=== PATIENT | female | born 1990 | race Caucasian/White ===

== ENCOUNTER 2021-02-21 18:10 | Emergency (ER) | payer BC, OTHER, SELFPAY ==
--- OUTSIDE RECORDS SUMMARY | 2021-02-21 18:13 | XMS REPORT | Continuity of Care Document ---
:1990 Author Organization [facility] t Address [address] [place] [address] Dr. Dobbs [address] [place] [address] Care Team Providers Name Role Phone Unavailable Unavailable Unavailable Problems This patient has no known problems. Allergies, Adverse Reactions, Alerts This patient has no known allergies or adverse reactions. Medications This patient has no known medications. Procedures This patient has no known procedures. Results Test Description Test Time Test Comments Results Result Comments Source RPR FOR SERUM ONLY 2020-08-01 04:42:00 Test Item Value Reference Range Interpretation Comme nts RPR (test code = RPR) NONREACTIVE NONREACTIVE NR = NON-REACTIVE R = REACT FRANCIS THYROID STIMULATION [id number] 02:51:00 Test Item Value Reference Range Interpretation Comments TSH (test code = TSH) 1.27 UIU/ML 0.465-4.68 LIPID [id number] 02:17:00 Test Item Value Reference Range Interpretation Comments CHOLEST (test code = 158 MG/DL 0-200 CHOLEST) TRIGLYCE (test code = 156 MG/DL 0-150 H TRIGLYCE) HDL (test code = HDL) 34 MG/DL 35-90 L NEGATI VE RISK FACTOR FOR HEART DISEA SE IF HDL >/=60 mg/dl MAJOR RISK FACTOR FOR HEART DISEASE IF HDL <40 mg/dL CALC LDL (test code = 93 MG/DL <100 CALC LDL) % HEMOGLOBIN A1C (GLYCATED)2020-08-01 02:17:00 Test Item Value Reference Range Interpretation Comments HEMOGLOBIN A1C (test 4.8 % 0-6 TH ERAPEUTIC TARGET code = GLYCO-) FOR THE TREAT MENT OF DIABETES M ADRIANAITUS PATIENTS IS < 7 % HBA1C. [employer] DIABETES CARE 2002;25:S33-S49 URINE DRUG [id number] 00:45:00 Test Item Value Reference Range Interpretation Comments AMPHET (test code = NEGATIVE NEGATIVE This is an unconfirmed BAMP) screening. Res ult are to be used for medical purposes (treat ment) only. Not inte nded for non-medical pur poses. Cut-off concent ration for a positive result for each drug: Amphetamine - 1 ,000 ng/ml Barbitura te - 200 ng/ml Benzodiaz epine - 200 ng/ml Canna binoids - 50 ng/ml Coca ine - 300 ng/ml Opiat es - 300 ng/ml PCP - 25 ng/ml BARBITURATES (test NEGATIVE NEGATIVE code = BBAR) BENZO (test code = NEGATIVE NEGATIVE BBENZ) CANNABS (test code = NEGATIVE NEGATIVE BCANN) COCAINE (test code = NEGATIVE NEGATIVE BCOC) OPIATES (test code = NEGATIVE NEGATIVE BOPI) PCP (test code = NEGATIVE NEGATIVE BMTPCP) HEPATITIS C ANTIBODY [id number] 23:31:00 Test Item Value Reference Range Interpretation Comments SCRN HCV (test code NEGATIVE NEGATIVE Hepatiti s C Antibody test = SCRN HCV) is for screenin g purposes only. All react oswaldo will be confirmed by additional test ing. ER SCREEN FOR HIV 23:31:00 Test Item Value Reference Range Interpretation Comments HIV 1/2 AB (test NEGATIVE NEGATIVE This test i s used for code = SCRN HIV) SCREENING p urposes only. All reactive re sults are prelimenary and confirmation re sults will follow. [id number] 23:00:00 Test Item Value Reference Range Interpretation Comments GLUCOSE (test code = URGLU) NEGATIVE MG/DL NEG-100 BILIRUBN (test code = URBILI) NEGATIVE NEGATIVE KETONE (test code = URKET) NEGATIVE MG/DL NEGATIVE BLOOD (test code = URBLD) NEGATIVE UR PH (test code = URPH) 6.0 5.0-7.5 PROTEIN (test code = URPRO) NEGATIVE MG/DL NEGATIVE NITRITES (test code = URNIT) NEGATIVE NEGATIVE UROBILINGEN (test code = 0.2 EU/DL 0.2-1.0 URURO) LEUKOCYT (test code = URLEU) TRACE NEGATIVE UA COLOR (test code = UA YELLOW YELLOW COLOR) CLARITY (test code = CLARITY) CLOUDY CLEAR SP GRAV (test code = URSPGRAV) 1.009 1.000-1.025 UAMICRO (test code = UAMICRO) YES WBC (test code = URWBC) 22 /HPF 0-5 H RBC (test code = URRBC) 2 /HPF 0-2 CASTS (test code = CAST) 4 /LPF 0-3 H UR EPI (test code = EPI) 142 /LPF BACTERIA (test code = MODERATE NONE BACTERIA) COVID SYMPTOMATIC ER [id number] 22:58:00 Test Item Value Reference Range Interpretation Comments CORONAVIRUS (COVID-19)BY PCR (test NEGATIVE code = [id number]) CREATINE [id number] 22:44:00 Test Item Value Reference Range Interpretation Comments CK (test code = CK) 81 U/L 30-135 BLOOD ALCOHOL (ETOH)2020-07-31 22:40:00 Test Item Value Reference Range Interpretation Comments ALCOHOL BLOOD LEVEL <10 MG/DL 0-10 Results are to be used (test code = ALC BLD) for me dical purposes (treatment) onl y. Not intended for no n medical purpose s. [id number] 22:40:00 Test Item Value Reference Range Interpretation Comments SODIUM (test code = 139 MMOL/L 137-145 NA) K+ (test code = 3.8 MMOL/L 3.5-5.1 KSERUM) CHLORIDE (test code 104 MMOL/L 98-107 = CL) CO2 (test code = 27 MMOL/L 22-30 CO2) BUN (test code = 9 MG/DL 7-17 BUN) CREA (test code = 0.8 MG/DL 0.7-1.2 CREA) GLUCOSE (test code 96 MG/DL 70-99 Fasting glucose = GLUCOSE) normal <100 MG/ DL- [employer] recommendation* * CALCIUM (test code 9.4 MG/DL 8.4-10.2 = CABLOOD) TOTPROT (test code 6.7 G/DL 6.3-8.2 = TOTPROT) ALBUMIN (test code 4.1 G/DL 3.5-5.0 = ALBSERUM) BILITOT (test code 0.4 MG/DL 0.2-1.3 = BILITOT) AST (test code = 22 U/L 15-46 AST) PHOSALK (test code 76 U/L 38-126 = PHOSALK) ALTV (test code = 21 U/L 13-69 ALTV) GFR (test code = 90 A GFR of >9 0 GFR) mL/min/1.73m2 mL/min/1.73m2 is considered norm al. [id number] 22:18:00 Test Item Value Reference Range Interpretation Comments WBC (test code = 15.4 K/UL 3.5-10.9 H WBC) RBC (test code = 4.88 M/UL 4.0-5.0 RBC) HGB (test code = 14.6 G/DL 11.5-15.5 HGB) HCT (test code = 43.1 % 34-46 HCT) MCV (test code = 88.3 FL 80-98 MCV) MCH (test code = 29.9 PG 28-32 MCH) MCHC (test code = 33.9 G/DL 32.5-36.5 MCHC) RDW (test code = 12.1 % 11.5-14.5 RDW) PLT (test code = 241 K/UL 150-450 PLT) MPV (test code = 11.9 FL 7.4-10.4 H MPV) MANDIFF (test code = NO MANDIFF) SCAN (test code = NO SCAN) NEUT% (test code = 72.8 % 40-75 NEUT%) LYMPH% (test code = 17.1 % 24-44 L LYMPH%) MONO% (test code = 8.0 % 0-13 MONO%) EOS% (test code = 0.9 % 0-4 EOS%) BASO % (test code = 0.4 % 0-2 BASO%) IG (test code = IG) 0 % 0-1 IG% (test code = 0.8 % 0-1 IG% = Metam yelocytes, IG%) Myelocytes, and Promyelocytes. (Immature neutr ophils not including " bands".) > 3% IG indic ates risk of sepsis NRBC% (test code = 0 /100 WBC NRBC%) ABS NEUT (test code 11.2 K/UL 1.2-7.2 H = NEUT) ISTAT [id number] 22:15:00 Test Item Value Reference Range Interpretation Comments ISTAT HCG (test <5.0 IU/L A value of l ess than or code = ISHCG) equal to <5 IU /L is considered NEGA TIVE A value between 5 IU/L and 25 IU/L is cons idered INDETERMINATE A value of >25 IU/L is con sidered POSITIVE
[2021-02-21] MEDS ORDERED: HALOPERIDOL LACT 5 MG/ML INJ ONE (19:41)
[2021-02-21] MEDS ORDERED: DIPHENHYDRAMINE 50 MG/ML VIAL ONE (19:41)
[2021-02-21 19:44] LABS: Urine Blood Negative (Negative); Urine Glucose Negative (Negative); Urine Protein Negative (Negative); Urine Specific Gravity >=1.030 (1.005-1.030)
[2021-02-21 19:57] LABS: Absolute Lymphocytes (CBC) 2.8 K/uL (0.7-4.9); Basophils % 0.7 % (0-1.3); Hematocrit 42.8 % (36.0-45.0); Lymphocytes % 15.6 % (15.3-44.8); MPV 10.8 fL (7.6-11.3); RBC Red Blood Cell Count 4.88 M/uL (3.86-4.86)
[2021-02-21 20:02] LABS: Barbiturates NEGATIVE (NEGATIVE); Benzodiazepines NEGATIVE (NEGATIVE); Cocaine NEGATIVE (NEGATIVE); METHAMPHETAM NEGATIVE (NEGATIVE); Methadone NEGATIVE (NEGATIVE); Opiates NEGATIVE (NEGATIVE); Phencyclidine NEGATIVE (NEGATIVE); THC Cannibis NEGATIVE (NEGATIVE)
[2021-02-21 20:02] LABS: Protime INR 0.88
[2021-02-21 20:31] LABS: ALT/SGPT 25 U/L (12-78); AST/SGOT 12 U/L (15-37); Albumin 3.8 g/dL (3.4-5.0); Alkaline Phosphatase 107 U/L (45-117); BUN Blood Urea Nitrogen 7 mg/dL (7-18); Bicarbonate 28 mmol/L (21-32); Bilirubin Direct < 0.1 mg/dL (0-0.2); Bilirubin Total 0.2 mg/dL (0.2-1.0); Glucose Level 90 mg/dL (74-106); Potassium 3.9 mmol/L (3.5-5.1); Protein, Total 7.4 g/dL (6.4-8.2); Sodium Level 143 mmol/L (136-145)
[2021-02-21 20:53] LABS: Blood Morphology Comment NOT SEEN (NOT SEEN); Platelet Estimate ADEQ; Platelets, Giant FEW PRESENT
--- NOTE | 2021-02-21 21:38 | EDPHYS ---
Physician Documentation [facility] Name: Margret Grider Age: 30 yrs Sex: Female : 1990 Arrival Date: 02/21/2021 Time: 18:14 Bed 7 Private MD: ED Physician Claudia Morales HPI: 02/21 21:36 This 30 yrs old Female presents to ER via Ambulatory with complaints of acute ma2 over chronic Psychosis. 21:36 The patient presents to the emergency department with anxiety. Onset: The ma2 symptoms/episode began/occurred gradually, 2 day(s) ago. Associated signs and symptoms: Pertinent negatives: chest pain, delusions, fever, hallucinations. Severity of symptoms: At their worst the symptoms were mild in the emergency department the symptoms are unchanged. The patient has not experienced similar symptoms in the past. 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 - Social history:: Smoking status: Patient reports the use of cigarette tobacco products, smokes one pack cigarettes per day. Patient uses alcohol, occasionally. Patient/guardian denies using street drugs, IV drugs, Patient/guardian denies using The patient lives with spouse, . - Family history:: not pertinent. ROS: 21:36 Constitutional: Negative for fever, chills, and weight loss. ma2 21:36 All other systems are negative. Exam: 21:36 Constitutional: This is a well developed, well nourished patient who is awake, alert, ma2 and in no acute distress. Chest/axilla: Normal chest wall appearance and motion. Nontender with no deformity. No lesions are appreciated. Cardiovascular: Regular rate and rhythm with a normal S1 and S2. No gallops, murmurs, or rubs. Normal PMI, no JVD. No pulse deficits. Respiratory: Lungs have equal breath sounds bilaterally, clear to auscultation and percussion. No rales, rhonchi or wheezes noted. No increased work of breathing, no retractions or nasal flaring. Abdomen/GI: Soft, non-tender, with normal bowel sounds. No distension or tympany. No guarding or rebound. No evidence of tenderness throughout. MS/ Extremity: Pulses equal, no cyanosis. Neurovascular intact. Full, normal range of motion. Neuro: Awake and alert, GCS 15, oriented to person, place, time, and situation. Cranial nerves II-XII grossly intact. Motor strength 5/5 in all extremities. Sensory grossly intact. Cerebellar exam normal. Normal gait. 21:36 Psych: Behavior/mood is pleasant, cooperative, anxious, aggressive, Affect is flat, Oriented to person, place, time, Patient has no thoughts/intents to harm self or others. Judgement / Insight is impaired. Delusions/hallucinations are present and described as delusions ]. Vital Signs: 18:23 BP 125 / 95; Pulse 93; Resp 18 S; Temp 98(TE); Pulse Ox 100% on R/A; Weight 90.72 kg ca1 (R); Height 5 ft. 9 in. (175.26 cm) (R); 02/22 00:43 BP 122 / 89; Pulse 84; Resp 16; Pulse Ox 99% on R/A; jm8 05:11 BP 130 / 82; Pulse 82; Resp 16; Pulse Ox 99% on R/A; jm8 02/21 18:23 Body Mass Index 29.53 (90.72 kg, 175.26 cm) ca1 MDM: 02/21 19:03 Patient medically screened. ma2 21:36 Differential diagnosis: drug withdrawal. depression, psychosis secondary to ma2 non-compliance. Data reviewed: vital signs, nurses notes. Counseling: I had a detailed discussion with the patient and/or guardian regarding: the historical points, exam findings, and any diagnostic results supporting the discharge/admit diagnosis, the presence of at least one elevated blood pressure reading (>120/80) during this emergency department visit, the need to transfer to another facility. Response to treatment: the patient's symptoms have markedly improved after treatment. 02/22 03:04 ED course: I attempt to call dr. Williamson, phone number [phone], for doc to doc. no ma2 answer. I left a voice note . 03:23 ED course: accepted by dr. williamson at 0324. ma2 05:28 Medical screen evaluation completed. EMTALA emergency medical condition absent. ED ma2 course: accepted by dr. mchugh . 02/21 19:06 Order name: Acetaminophen; Complete Time: 20:33 [facility] 02/21 19:06 Order name: Basic Metabolic Panel; Complete Time: 20:33 [facility] 02/21 19:06 Order name: CBC with Diff; Complete Time: 21:17 [facility] 02/21 19:06 Order name: ETOH Level; Complete Time: 21:17 [facility] 02/21 19:06 Order name: Hepatic Function; Complete Time: 20:33 [facility] 02/21 19:06 Order name: PT-INR; Complete Time: 20:33 [facility] 02/21 19:06 Order name: Ptt, Activated; Complete Time: 20:33 [facility] 02/21 19:06 Order name: Salicylate; Complete Time: 20:33 [facility] 02/21 19:06 Order name: Urine Drug Screen; Complete Time: 20:33 [facility] 02/21 19:44 Order name: Urine Dipstick-Ancillary; Complete Time: 20:00 [facility] 02/21 20:53 Order name: Manual Differential; Complete Time: 21:17 [facility] 02/21 21:32 Order name: SARS-COV-2 RT PCR; Complete Time: 05:28 [facility] 02/22 04:18 Order name: CBC with Diff 8 02/21 19:06 Order name: Urine Test (obtain specimen); Complete Time: 19:45 [facility] 02/21 19:06 Order name: EKG; Complete Time: 19:07 [facility] 02/21 19:06 Order name: EKG - Nurse/Tech; Complete Time: 19:55 [facility] 02/21 19:06 Order name: IV Saline Lock; Complete Time: 19:45 [facility] 02/21 19:06 Order name: Labs collected and sent; Complete Time: 19:45 [facility] 02/21 19:06 Order name: Suicide Screening ([place]); Complete Time: 20:39 [facility] 02/21 19:06 Order name: Urine Dipstick-Ancillary (obtain specimen); Complete Time: 19:45 [facility] 02/22 04:18 Order name: CBC with Automated Diff; Complete Time: 05:28 [facility] 02/22 04:37 Order name: Manual Differential; Complete Time: 05:28 [facility] Administered Medications: 02/21 19:44 Drug: HALdol (haloperidol) 5 mg Route: IVP; Site: right antecubital; jm8 20:39 Follow up: Response: No adverse reaction 8 19:44 Drug: Benadryl (diphenhydrAMINE) 50 mg Route: IVP; Site: right antecubital; jm8 20:39 Follow up: Response: No adverse reaction 8 21:26 Drug: NS 0.9% 1000 ml Route: IV; Rate: 1 bolus; Site: right antecubital; 8 23:46 Follow up: IV Status: Completed infusion 8 21:26 Drug: Rocephin (cefTRIAXone) 1 grams Route: IV; Rate: calculated rate; Site: right jm8 antecubital; 23:46 Follow up: Response: No adverse reaction [facility] Point of Care Testing: Urine : 19:54 hCG Reading: Negative; Control Reading: Positive; 8 Disposition: 02/21/21 21:38 Transfer ordered to Psych Facility. Diagnosis is Delusional disorders. - Reason for transfer: Higher level of care. - Accepting physician is o[facility]. - Condition is Stable. - Problem is new. - Symptoms are unchanged. Signatures: Dispatcher [employer] [facility] Claudia Morales MD MD ma2 Emilee Barraza RN RN ca1 Marcel Puga RN RN jm8 Corrections: (The following items were deleted from the chart) 20:55 20:34 CORONAVIRUS+MR.LAB.BRZ ordered. [facility] 02/22 06:56 02/21 21:38 02/21/2021 21:38 Transfer ordered to Psych Facility. Diagnosis is jm8 Delusional disorders. Reason for transfer: Higher level of care. Accepting physician is [facility]. Condition is Stable. Problem is new. Symptoms are unchanged. ma2
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
[2021-02-21] MEDS ORDERED: CEFTRIAXONE/SWI 1gm 1 GM/10 ML SYR ONE (21:43)
[2021-02-21] MEDS ORDERED: NA CHLORIDE 0.9% 1,000 ML ONE (21:43)
[2021-02-22 04:32] LABS: Basophils % 0.4 % (0-1.3); Hematocrit 39.5 % (36.0-45.0); MPV 10.3 fL (7.6-11.3); RBC Red Blood Cell Count 4.48 M/uL (3.86-4.86)
[2021-02-22 05:09] LABS: Blood Morphology Comment NOT SEEN (NOT SEEN); Platelet Estimate ADEQ
[2021-02-22 07:43] VITALS: TEMP 98
[2021-02-22 07:45] VITALS: O2SAT 99
[2021-02-22 07:57] VITALS: BP 130/82
--- NOTE | 2021-02-22 11:58 | EKG ---
Test Date: 2021-02-21 Test Time: 19:54:33 [employer] Adminstrator: CHERYL MEASUREMENT RESULTS: Intervals: Rate: 100 MD: 128 QRSD: 84 QT: 372 QTc: 479 [place]: P: 56 MD: 128 QRS: 68 T: 37 INTERPRETIVE STATEMENTS: Normal sinus rhythm Normal ECG Compared to ECG 03/19/2015 17:20:41 Sinus tachycardia no longer present Electronically Signed On 02-22-21 11:56:55 CDT by Patrick Copeland
== END 2021-02-22 06:56 ==
LOC: ER 18:10
DX: F22 Delusional disorders (principal); F20.9 Schizophrenia, unspecified; F17.210 Nicotine dependence, cigarettes, uncomplicated; Z20.822 Contact with and (suspected) exposure to COVID-19
CPT/HCPCS: 36415; 80048; 80076; 80307; 80320; 80329; 81003; 85025; 85610; 85730; 93005; 96361; 96374; 96375; 99285; J0696; J1200; J1630; J7030; U0003

== ENCOUNTER 2024-01-28 18:05 | Emergency (ER) | payer OTHER, SELFPAY ==
[2024-01-28] MEDS ORDERED: clonazePAM 1 MG TAB ONE (22:17)
[2024-01-28 23:10] LABS: Absolute Eosinophils 0.3 K/uL (0-0.5); Absolute Monocytes 0.9 K/uL (0.1-1.3); Absolute Neutrophil 7.6 K/uL (1.8-8.0); Basophils % 0.4 % (0-1.3); Eosinophils % 3.1 % (0-4.4); Hematocrit 39.5 % (36.0-45.0); Hemoglobin 13.6 g/dL (12.0-15.0); Lymphocytes % 18.4 % (15.3-44.8); MCH 29.5 pg (27.0-35.0); MCHC 34.5 g/dL (32.0-36.0); MCV 85.5 fL (80-100); MPV 10.5 fL (7.6-11.3); Monocytes % 8.5 % (3.3-12.3); Neutrophils % 69.6 % (41.7-73.7); Platelets 213 thou/uL (152-406); RBC Red Blood Cell Count 4.61 M/uL (3.86-4.86); Red Cell Distribution Width 13.2 % (12.1-15.2)
[2024-01-28 23:11] LABS: PT Prothrombin Time 11.8 SECONDS (9.5-12.5); PTT, Activated Partial Thromb 34.6 SECONDS (24.3-36.9); Protime INR 1.07
[2024-01-28 23:18] LABS: Barbiturates NEGATIVE (NEGATIVE); Benzodiazepines NEGATIVE (NEGATIVE); Cocaine NEGATIVE (NEGATIVE); METHAMPHETAM NEGATIVE (NEGATIVE); Methadone NEGATIVE (NEGATIVE); Opiates NEGATIVE (NEGATIVE); Phencyclidine NEGATIVE (NEGATIVE); THC Cannibis NEGATIVE (NEGATIVE)
[2024-01-28 23:21] LABS: Specific Gravity 1.019 (1.005-1.030)
[2024-01-28 23:32] LABS: Urine Bacteria <20 /HPF (<20); Urine Bilirubin NEGATIVE (Negative); Urine Blood Negative (Negative); Urine Clarity Turbid (Clear); Urine Color Light-Yellow (Yellow); Urine Culture Reflex Order NOT NEEDED; Urine Glucose NEGATIVE (Negative); Urine Ketones NEGATIVE (Negative); Urine Microscopic Reflex YN ORDER UMIC; Urine Mucus Slight /HPF (None Seen); Urine Nitrite NEGATIVE (Negative); Urine Protein NEGATIVE (Negative); Urine RBC None Seen /HPF (None Seen); Urine Urobilinogen Normal (Normal); Urine WBC <5 /HPF (<5)
--- NOTE | 2024-01-28 23:36 | ER ---
Nurse's Notes [facility] Name: Margret Grider Age: 33 yrs Sex: Female : 1990 Arrival Date: 01/28/2024 Time: 18:05 Bed 7 Private MD: Diagnosis: Anxiety disorder, unspecified;Acute anxiety attack Presentation: 01/27 18:28 Chief complaint: Patient states: pt states she just wants to get things checked out. pt as6 reports she hasn't bee taking her psych meds. pt denies SI and HI at time of triage. Coronavirus screen: At this time, the client does not indicate any symptoms associated with coronavirus-19. Ebola Screen: No symptoms or risks identified at this time. Initial Sepsis Screen: Does the patient meet any 2 criteria? No. Patient's initial sepsis screen is negative. Does the patient have a suspected source of infection? No. Patient's initial sepsis screen is negative. Risk Assessment: Do you want to hurt yourself or someone else? Patient reports no desire to harm self or others. Onset of symptoms was January 28, 2024. 18:28 Method Of Arrival: Ambulatory as6 18:28 Acuity: CESARIO 3 as6 Triage Assessment: 18:30 General: Appears in no apparent distress. Behavior is cooperative, anxious, restless. as6 Pain: Denies pain. 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 - Infectious Disease History:: Denies. - Social history:: Smoking status: Patient reports the use of cigarette tobacco products, smokes one pack cigarettes per day. - Family history:: not pertinent. Screenin:28 [facility] ED Fall Risk Assessment (Adult) History of falling in the last 3 months, rv including since admission No falls in past 3 months (0 pts) Score/Fall Risk Level 0 - 2 = Low Risk Oriented to surroundings, Maintained a safe environment, Educated pt \\T\\ family on fall prevention, incl call for assistance when getting out of bed, Assessed \\T\\ reinforced patient's understanding of fall precautions. Abuse screen: Denies threats or abuse. Denies injuries from another. Nutritional screening: No deficits noted. Tuberculosis screening: No symptoms or risk factors identified. Assessment: 23:22 General: Appears comfortable, Behavior is cooperative, anxious. Pain: Denies pain. rv Neuro: Level of Consciousness is awake, alert, obeys commands, Oriented to person, place, time, situation. Cardiovascular: Capillary refill < 3 seconds Patient's skin is warm and dry. Respiratory: Airway is patent Respiratory effort is even, unlabored. Derm: Skin is intact. Psych: 22:29 [place] Suicide Severity Screening: did not answer. rv 23:23 [place] Suicide Severity Screening: In the past month, have you wished you were rv or wished you could go to sleep and not wake up? Patient responds "No." "In the past month, have you actually had any thoughts of killing yourself?" Patient responds "no." "In your lifetime, have you ever done anything, started to do anything, or prepared to do anything to end your life?" Patient responds "no.". Subjective: Delusions are denied, Hallucinations are denied. Objective: Patient is cooperative, Speech is. Interventions: Patient placed in hospital gown. Searched person for dangerous items. Safety Checks: Door is open. Pt denies substance abuse. 23:42 Commitment: n/a. me1 Vital Signs: 18:28 BP 157 / 101; Pulse 99; Resp 18 S; Temp 97.2(TE); Pulse Ox 100% on R/A; Weight 72.57 kg as6 (R); Height 5 ft. 7 in. (R); Pain 0/10; 19:00 BP 121 / 95; Pulse 78; Resp 15; Pulse Ox 99% on R/A; me1 20:00 BP 153 / 74; Pulse 80; Resp 19; Pulse Ox 100% on R/A; me1 22:56 BP 125 / 96; Pulse 86; Resp 16; Pulse Ox 98% on R/A; me1 23:15 BP 137 / 90; Pulse 76; Resp 16; Pulse Ox 97% on R/A; me1 18:28 Body Mass Index 25.06 (72.57 kg, 170.18 cm) as6 18:28 Pain Scale: Adult as6 John Coma Score: 23:36 Eye Response: spontaneous(4). Motor Response: obeys commands(6). Verbal Response: sp4 oriented(5). Total: 15. ED Course: 18:08 Patient arrived in ED. im 18:27 Arm band placed on left wrist. as6 18:30 Triage completed. as6 19:06 Bjorn Armas MD is Attending Physician. kiran 20:44 Attending Physician role handed off by Bjorn Armas MD sp4 20:44 Phillip Moore MD is Attending Physician. sp4 22:28 Patient has correct armband on for positive identification. Client placed on continuous rv cardiac and pulse oximetry monitoring. NIBP monitoring applied. 22:28 Acetaminophen Sent. rv 22:28 Basic Metabolic Panel Sent. rv 22:28 CBC with Diff Sent. rv 22:28 ETOH Level Sent. rv 22:28 Hepatic Function Sent. rv 22:28 PT-INR Sent. rv 22:28 Salicylate Sent. rv 22:28 Ptt, Activated Sent. rv 22:28 No provider procedures requiring assistance completed. Initial lab(s) drawn, by me, rv sent to lab. Inserted saline lock: 20 gauge in right hand, using aseptic technique. Blood collected. 23:34 Payam Painter MD is Referral Physician. sp4 23:37 IV discontinued, intact, bleeding controlled, No redness/swelling at site. Pressure me1 dressing applied. 23:38 Provided Education on: POC. Verbalized understanding.. me1 Administered Medications: 20:59 CANCELLED (Physician Discretion): ns 0.9% 1000 ml IV at 1 bolus Per protocol; 1000 mL sp4 bolus 22:28 Drug: clonazePAM PO 2 mg PO once Route: PO; rv 23:38 Follow up: Response: No adverse reaction; Anxiety decreased me1 Medication: 22:28 VIS not applicable for this client. rv Outcome: 23:35 Discharge ordered by . sp4 23:42 Discharged to home ambulatory, me1 23:42 Condition: stable 23:42 Discharge instructions given to patient, Instructed on discharge instructions, follow up and referral plans. medication usage, Demonstrated understanding of instructions, follow-up care, medications, Prescriptions given X 1, 23:44 Patient left the ED. me1 Signatures: Bjorn Armas MD MD cha Vicente, Ronaldo, RN RN rv Tirso Recio RN RN as6 Phillip Moore MD MD sp4 Milagro Gibson Michelle, RN RN me1
--- NOTE | 2024-01-28 23:36 | EDPHYS ---
Physician Documentation [facility] Name: Margret Grider Age: 33 yrs Sex: Female : 1990 Arrival Date: 01/28/2024 Time: 18:05 Bed 7 Private MD: ED Physician Phillip Moore HPI: 01/27 20:44 This 33 yrs old Female presents to ER via Ambulatory with complaints of Psych sp4 Problem. 23:36 33-year-old female presents with complaint of worsening anxiety which is chronic. sp4 Patient states that she was discharged from [facility] about a month ago and ever since then she has been anxious. Patient states she is not on any medication at this time but in the past she was on clonazepam. . 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 - Infectious Disease History:: Denies. - Social history:: Smoking status: Patient reports the use of cigarette tobacco products, smokes one pack cigarettes per day. - Family history:: not pertinent. ROS: 23:36 Constitutional: Negative for fever, chills, and weight loss, Psych: Positive for sp4 anxiety 23:36 All other systems are negative, Exam: 23:36 Constitutional: This is a well developed, well nourished patient who is awake, alert, sp4 and in no acute distress. Head/Face: Normocephalic, atraumatic. Eyes: Pupils equal round and reactive to light, extra-ocular motions intact. Lids and lashes normal. Conjunctiva and sclera are not injected. Cornea within normal limits. Periorbital areas with no swelling, redness, or edema. ENT: Nares patent. No nasal discharge, no septal abnormalities noted. Tympanic membranes are normal and external auditory canals are clear. Oropharynx with no redness, swelling, or masses, exudates, or evidence of obstruction, uvula midline. Mucous membranes moist. Neck: Trachea midline, no thyromegaly or masses palpated, and no cervical lymphadenopathy. Supple, full range of motion without nuchal rigidity, or vertebral point tenderness. Chest/axilla: Normal chest wall appearance and motion. Nontender with no deformity. No lesions are appreciated. Cardiovascular: Regular rate and rhythm with a normal S1 and S2. No gallops, murmurs, or rubs. Normal PMI, no JVD. No pulse deficits. Respiratory: Lungs have equal breath sounds bilaterally, clear to auscultation and percussion. No rales, rhonchi or wheezes noted. No increased work of breathing, no retractions or nasal flaring. Abdomen/GI: Soft, with normal bowel sounds. No distension or tympany. No guarding or rebound. No evidence of tenderness throughout. Back: No spinal tenderness. No costovertebral tenderness. Skin: Warm, dry with normal turgor. Normal color with no rashes, no lesions, and no evidence of cellulitis. MS/ Extremity: Pulses equal, no cyanosis. Neurovascular intact. Full, normal range of motion. Neuro: Awake and alert, GCS 15, oriented to person, place, time, and situation. Cranial nerves II-XII grossly intact. Motor strength 5/5 in all extremities. Sensory grossly intact. Psych: Awake, alert, with orientation to person, place and time. Behavior, mood, and affect are within normal limits Vital Signs: 18:28 BP 157 / 101; Pulse 99; Resp 18 S; Temp 97.2(TE); Pulse Ox 100% on R/A; Weight 72.57 kg as6 (R); Height 5 ft. 7 in. (R); Pain 0/10; 19:00 BP 121 / 95; Pulse 78; Resp 15; Pulse Ox 99% on R/A; me1 20:00 BP 153 / 74; Pulse 80; Resp 19; Pulse Ox 100% on R/A; me1 22:56 BP 125 / 96; Pulse 86; Resp 16; Pulse Ox 98% on R/A; me1 23:15 BP 137 / 90; Pulse 76; Resp 16; Pulse Ox 97% on R/A; me1 18:28 Body Mass Index 25.06 (72.57 kg, 170.18 cm) as6 18:28 Pain Scale: Adult as6 John Coma Score: 23:36 Eye Response: spontaneous(4). Motor Response: obeys commands(6). Verbal Response: sp4 oriented(5). Total: 15. MDM: 19:06 Patient medically screened. kiran 23:36 Differential diagnosis: drug withdrawal. acute psychotic break, depression, psychosis sp4 secondary to non-compliance. Data reviewed: vital signs, nurses notes, lab test result(s), UPT: negative. Consideration of Admission/Observation Escalation of care including admission/observation considered. ED course: 33-year-old female presents with worsening of chronic anxiety. Patient also have history of bipolar disorder and schizoaffective disorder. Patient denied homicidal or suicidal ideation. Patient stable for discharge with as needed clonazepam. Will advise follow-up with Dr. Sigala with psychiatry. 01/27 19:07 Order name: Acetaminophen [facility] 01/27 19:07 Order name: Basic Metabolic Panel [facility] 01/27 19:07 Order name: CBC with Diff; Complete Time: 23:30 [facility] 01/27 19:07 Order name: ETOH Level; Complete Time: 23:30 [facility] 01/27 19:07 Order name: Hepatic Function [facility] 01/27 19:07 Order name: PT-INR; Complete Time: 23:30 [facility] 01/27 19:07 Order name: Test, Urine; Complete Time: 23:30 [facility] 01/27 19:07 Order name: Ptt, Activated; Complete Time: 23:30 [facility] 01/27 19:07 Order name: Salicylate; Complete Time: 23:30 [facility] 01/27 19:07 Order name: Urinalysis w/ reflexes [facility] 01/27 19:07 Order name: Urine Drug Screen; Complete Time: 23:30 [facility] 01/27 19:07 Order name: IV Saline Lock; Complete Time: 22:28 [facility] 01/27 19:07 Order name: Labs collected and sent; Complete Time: 22:28 [facility] Administered Medications: 20:59 CANCELLED (Physician Discretion): ns 0.9% 1000 ml IV at 1 bolus Per protocol; 1000 mL sp4 bolus 22:28 Drug: clonazePAM PO 2 mg PO once Route: PO; rv 23:38 Follow up: Response: No adverse reaction; Anxiety decreased me1 Disposition Summary: 01/28/24 23:35 Discharge Ordered Notes: Location: Home sp4 Problem: new sp4 Symptoms: have improved sp4 Condition: Stable sp4 Diagnosis - Anxiety disorder, unspecified sp4 - Acute anxiety attack sp4 Followup: sp4 - With: Payam Painter MD - When: 7 - 10 days - Reason: Recheck today's complaints Discharge Instructions: - Discharge Summary Sheet sp4 - Managing Anxiety, Adult sp4 Forms: - Patient Portal Instructions sp4 Prescriptions: - clonazepam 1 mg Oral tablet - take 1 tablet ORAL route daily PRN anxiety; 20 tablet; Refills: 0, Product sp4 Selection Permitted Signatures: Dispatcher [employer] Bjorn Juarez MD MD cha Vicente, Ronaldo, RN RN rv Tirso Recio RN RN as6 Phillip Moore MD MD sp4 Mavis Hawley RN me1 Corrections: (The following items were deleted from the chart) 19:08 19:08 ACETAMINOPHEN+C.LAB.BRZ ordered. EDMS EDMS 19:08 19:08 BASIC METABOLIC PANEL+C.LAB.BRZ ordered. EDMS EDMS 19:08 19:08 CBC+H.LAB.BRZ ordered. EDMS EDMS 19:08 19:08 ETHANOL+C.LAB.BRZ ordered. EDMS EDMS 19:08 19:08 HEPATIC FUNCTION+C.LAB.BRZ ordered. EDMS EDMS 19:08 19:08 PROTIME (+INR)+COAG.LAB.BRZ ordered. EDMS EDMS 19:08 19:08 Test, Urine+UC.LAB.BRZ ordered. EDMS EDMS 19:08 19:08 PTT, ACTIVATED+COAG.LAB.BRZ ordered. EDMS EDMS 19:08 19:08 SALICYLATE+C.LAB.BRZ ordered. EDMS EDMS 19:08 19:08 Urinalysis+U.LAB.BRZ ordered. EDMS EDMS 19:08 19:08 URINE DRUG SCREEN+UC.LAB.BRZ ordered. EDMS EDMS 20:59 19:07 EKG - Nurse/Tech ordered. [facility] sp4 20:59 19:07 NS 0.9% IV 1000 ml IV at 1 bolus Per protocol; 1000 mL bolus ordered. [facility] sp4 21:00 19:07 Suicide Screening ([place]) ordered. kiran sp4
[2024-01-28 23:38] LABS: ALT/SGPT 18 U/L (13-56); Albumin 3.5 g/dL (3.4-5.0); Albumin/Globulin Ratio 1.2 (1.1-1.8); Alkaline Phosphatase 79 U/L (45-117); Anion Gap 8.2 mEq/L (5.0-15.0); BUN Blood Urea Nitrogen 6 mg/dL (7-18); Bicarbonate 26 mEq/L (21-32); Bilirubin Total 0.2 mg/dL (0.2-1.0); Globulin 2.9 g/dL (2.3-3.5); Glomerular Filtration Rate 75 ml/min (=/>90); Glucose Level 103 mg/dL (74-106); Protein, Total 6.4 g/dL (6.4-8.2); Sodium Level 139 mEq/L (136-145)
[2024-01-28 23:39] LABS: AST/SGOT 13 U/L (15-37); Bilirubin Direct < 0.1 mg/dL (0-0.2); Bilirubin Indirect, Calculated ND mg/dL (0.2-0.8); Potassium 4.2 mEq/L (3.5-5.1)
[2024-01-29 00:35] VITALS: BP 137/90; TEMP 97.2; O2SAT 97
== END 2024-01-28 23:44 | disposition home or self-care (01) ==
LOC: ER 18:05
DX: F41.0 Panic disorder [episodic paroxysmal anxiety] (principal)
CPT/HCPCS: 36415; 80048; 80076; 80143; 80179; 80307; 81001; 81025; 82077; 85025; 85610; 85730; 99284